=== PATIENT | male | born 1950 | race African-American/Black ===

== ENCOUNTER 2017-06-26 15:49 | Inpatient (IN) | payer OTHER ==
[2017-06-26 16:01] VITALS: BMI 23.3
--- NOTE | 2017-06-26 16:43 | HP ---
CIWA Score - CIWA Score Nausea/Vomitin Muscle Tremors: 3 Anxiety: 3 Agitation: 3 Paroxysmal Sweats: 2 Orientation: 0-Oriented Tacttile Disturbances: 2-Mild Itch/Numbness/Burn Auditory Disturbances: 2-Mild Harshness/Frighten Visual Disturbances: 1-Very Mild Sensitivity Headache: 2-Mild CIWA-Ar Total Score: 21 Admission ROS BHS - HPI Chief Complaint: i need help to stop using alcohol,cocaine,heroin abused Allergies/Adverse Reactions: Allergies Allergy/AdvReac Type Severity Reaction Status Date / Time No Known Allergies Allergy Verified 06/26/17 18:44 History of Present Illness: this 67 years old male with alcohol and cocaine dependence,heroin abused, seeking detox,last treatment 2017 unknown facility syncope alcohol related depression hypertension no significant period of sobriety - Ebola screening Have you traveled outside of the country in the last 21 days: No Have you had contact with anyone from an Ebola affected area: No Have you been sick,other than usual withdrawal symptoms: No Do you have a fever: No - Review of Systems Constitutional: Loss of Appetite, Malaise, Night Sweats, Changes in sleep, Weakness, Unintentional Wgt. Loss EENT: reports: Tearing, Nose Congestion Respiratory: reports: No Symptoms reported Cardiac: reports: No Symptoms Reported GI: reports: Nausea, Vomiting, Abdominal cramping : reports: No Symptoms Reported Musculoskeletal: reports: Back Pain, Muscle Pain Integumentary: reports: Dryness Neuro: reports: Headache, Tremors Endocrine: reports: No Symptoms Reported Hematology: reports: No Symptoms Reported Psychiatric: reports: Depressed Patient History - Patient Medical History Hx Anemia: No Hx Asthma: No Hx Chronic Obstructive Pulmonary Disease (COPD): No Hx Cancer: No Hx Cardiac Disorders: No Hx Congestive Heart Failure: No Hx Hypertension: Yes (Pt is non compliant with meds.) Hx Hypercholesterolemia: No Hx Pacemaker: No HX Cerebrovascular Accident: 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) Hx Seizures: No Hx Dementia: No Hx Diabetes: No Hx Gastrointestinal Disorders: No Hx Liver Disease: No Hx Genitourinary Disorders: No Hx Sexually Transmitted Disorders: Yes (Hx of gonnorhea) Hx Renal Disease (ESRD): No Hx Thyroid Disease: No Hx Human Immunodeficiency Virus (HIV): No (last 2015 negative) Hx Hepatitis C: No Hx Depression: No Hx Suicide Attempt: No Hx Bipolar Disorder: Yes Hx Schizophrenia: Yes (elif) Other Medical History: no suicidal,no homicidal - Patient Surgical History Past Surgical History: No - PPD History Previous Implant?: Yes Documented Results: Negative w/o proof Implanted On Prior R Admission?: Yes Date: 01/20/14 Results: 0 MM PPD to be Administered?: Yes - Smoking Cessation Smoking history: Current every day smoker Have you smoked in the past 12 months: Yes Aproximately how many cigarettes per day: 2 Hx Chewing Tobacco Use: No Initiated information on smoking cessation: Yes 'Breaking Loose' booklet given: 06/26/17 - Substance & Tx. History Hx Alcohol Use: Yes Hx Substance Use: Yes Substance Use Type: Alcohol, Cocaine, Heroin - Substances Abused Alcohol Route: Oral Frequency: Daily Amount used: 1/2 pint of whiskey/6 packs of 12 ozs of beer Age of first use: 14 Date of Last Use: 06/26/17 Cocaine Route: Smoking Frequency: Daily Amount used: 20$ Age of first use: 17 Date of Last Use: 06/26/17 Heroin Route: Inhalation Frequency: 1-2 times per week Amount used: 1 bag Age of first use: 14 Date of Last Use: 06/22/17 Family Disease History - Family Disease History Family Disease History: Diabetes: Mother (heroin ,), Heart Disease: Mother, CA: Grandparent, Other: Mother Admission Physical Exam BHS - Vital Signs Vital Signs: Vital Signs - 24 hr 06/26/17 15:58 Temperature 98 F Pulse Rate 64 Respiratory 18 Rate Blood Pressure 168/109 - Physical General Appearance: Yes: Moderate Distress, Tremorous, Irritable, Sweating, Anxious HEENTM: Yes: Normal ENT Inspection, SEA, Pharynx Normal Respiratory: Yes: Lungs Clear, Normal Breath Sounds, No Respiratory Distress Neck: Yes: Within Normal Limits, Supple, Trachea in good position Breast: Yes: Within Normal Limits Cardiology: Yes: Within Normal Limits, Regular Rhythm, Regular Rate, S1, S2 Abdominal: Yes: Within Normal Limits, Normal Bowel Sounds, Non Tender, Flat, Soft Genitourinary: Yes: Within Normal Limits Back: Yes: Within Normal Limits, Normal Inspection, Muscle Spasm Musculoskeletal: Yes: Within Normal Limits, full range of Motion, Back pain Extremities: Yes: Tremors Neurological: Yes: cook starch II-XII NML intact, Fully Oriented, Alert, Motor Strength 5/5 Integumentary: Yes: Dry Lymphatic: Yes: Within Normal Limits - Diagnostic (1) Alcohol dependence with uncomplicated withdrawal Current Visit: Yes Status: Acute (2) Cocaine dependence Current Visit: Yes Status: Acute (3) Hypertension Current Visit: No Status: Acute (4) Opioid dependence Current Visit: No Status: Acute (5) Schizoaffective disorder Current Visit: No Status: Chronic (6) Nicotine dependence Current Visit: Yes Status: Acute (7) Uncomplicated sedative, hypnotic, or anxiolytic withdrawal Current Visit: Yes Status: Acute Cleared for Admission [facility] - Detox or Rehab [facility] Level of Care: Medically Managed Detox Regimen/Protocol: Librium (urine for drug screen shwed negative for opiate ) [facility] Breath Alcohol Content Breath Alcohol Content: 0.044 Urine Drug Screen - Results Drug Screen Negative: No Urine Drug Screen Results: MINERVA-Cocaine
[2017-06-26] MEDS ORDERED: ACETAMINOPHEN 325 MG TABLET (FP) PO PRN (16:55)
[2017-06-26] MEDS ORDERED: hydrOXYzine PAMOATE 25 MG CAPSULE (FP) PO PRN (16:55)
[2017-06-26] MEDS ORDERED: P-EPHED 60MG/TRIPROLIDI 2.5MG TABLET PO PRN (16:55)
[2017-06-26] MEDS ORDERED: IBUPROFEN 400 MG TABLET (FP) PO PRN (16:55)
[2017-06-26] MEDS ORDERED: guaiFENesin/D-METHORPHAN HB 10 ML UNIT-DOSE CUPS PO PRN (16:55)
[2017-06-26] MEDS ORDERED: chlordiazePOXIDE HCL 25 MG CAPSULE PO PRN (16:55)
[2017-06-26] MEDS ORDERED: MAG HYDROX/AL HYDROX/SIMETH 30 ML UNIT-DOSE CUP PO PRN (16:55)
[2017-06-26] MEDS ORDERED: MAGNESIUM HYDROX 2400MG/30ML ORAL SUSPENSION 30 ML CUP PO PRN (16:55)
[2017-06-26] MEDS ORDERED: MAGNESIUM CITRATE 300 ML BOTTLE PO PRN (16:55)
[2017-06-26] MEDS ORDERED: chlordiazePOXIDE HCL 25 MG CAPSULE PO ONE (16:55)
[2017-06-26] MEDS ORDERED: MENTHOL/PHENOL 1 EACH UD MM PRN (16:55)
[2017-06-26] MEDS ORDERED: LOPERAMIDE HCL 2 MG CAPSULE PO PRN (16:55)
[2017-06-26] MEDS: THIAMINE HCL 100 MG TABLET (FP) PO SCH (21:28)
[2017-06-26] MEDS: cloNIDine HCL 0.1 MG TABLET PO SCH (21:28)
[2017-06-26] MEDS: chlordiazePOXIDE HCL 25 MG CAPSULE PO SCH (22:42)
[2017-06-27] MEDS: chlordiazePOXIDE HCL 25 MG CAPSULE PO SCH ×4 (06:03→22:35)
[2017-06-27] MEDS: HYDROCHLOROTHIAZIDE 25 MG TABLET (FP) PO SCH (10:32)
[2017-06-27] MEDS: PRENATAL VITAMINS W/ FOLIC ACID TABLET (FP) PO SCH (10:32)
[2017-06-27] MEDS: cloNIDine HCL 0.1 MG TABLET PO SCH ×2 (10:32→22:34)
--- NOTE | 2017-06-27 11:14 | CONSULT ---
[facility] Psychiatric Consult - Data Date of interview: 06/27/17 Admission source: [facility] Identifying data: Readmission to [facility] for this 67 y/o AA male seeking detox treatment on for heroin and cocaine (crack) dependence.Patient is ,a father of six,domiciled,unemployed and supported on [facility] benefits. Substance Abuse History: Confirmed by patient in this session.Refer to current [facility] report for details : Smoking history: Current every day smoker. Have you smoked in the past 12 months: Yes. Aproximately how many cigarettes per day: 2. Hx Chewing Tobacco Use: No. Initiated information on smoking cessation: Yes. 'Breaking Loose' booklet given: 06/26/17. - Substance & Tx. History. Hx Alcohol Use: Yes. Hx Substance Use: Yes. Substance Use Type: Alcohol, Cocaine , Heroin. - Substances Abused. Alcohol. Route: Oral. Frequency: Daily. Amount used: 1/2 pint of whiskey/6 packs of 12 ozs of beer. Age of first use: 14. Date of Last Use: 06/26/17. Cocaine. Route: Smoking. Frequency: Daily. Amount used: 20$. Age of first use: 17. Date of Last Use: 06/26/17. * * Heroin. Route: Inhalation. Frequency: 1-2 times per week. Amount used: 1 bag. Age of first use: 14. Date of Last Use: 06/22/17 Medical History: Hepatitis C,hypertension,lower back pain (used to walk with cane),Kramer's palsy (2012) and a history of treatment for gonorrhea. Psychiatric History: Patient denies history of psychiatric illness or hospitalizations (contrary to [facility] report of schizophrenia).No reported contact with psychiatric OPD care providers.Exposure to psychotropic medications : none.Mr Hadley denies history of suicide attempts. Physical/Sexual Abuse/Trauma History: Patient denies history of abuse. Additional Comment: Urine Drug Screen Results: MINERVA-Cocaine.Noted. Mental Status Exam - Mental Status Exam Alert and Oriented to: Time, Place, Person Cognitive Function: Grossly Intact Patient Appearance: Well Groomed Mood: Withdrawn, Hopeful Affect: Mood Congruent Patient Behavior: Fatigued, Appropriate, Cooperative Speech Pattern: Clear, Appropriate Voice Loudness: Normal Thought Process: Goal Oriented Thought Disorder: Not Present Hallucinations: Denies Suicidal Ideation: Denies Homicidal Ideation: Denies Insight/Judgement: Poor Sleep: Poorly, Difficulty falling asleep Appetite: Fair Gait/Station: Other (slow but steady) Psychiatric Findings - Problem List ([place] 1, 2,3) (1) Alcohol dependence with uncomplicated withdrawal Current Visit: Yes Status: Acute (2) Cocaine dependence Current Visit: Yes Status: Chronic (3) Nicotine dependence Current Visit: Yes Status: Chronic (4) Insomnia Current Visit: Yes Status: Acute - Initial Treatment Plan Initial Treatment Plan: Psychoeducation.Sleep hygiene.Detoxification in progress.Patient agrees to take hydroxyzine 25 mg po hs prn to address mild insomnia.Side effects/benefits discussed.Mr Hadley agrees to follow this careplan.Observation.Fall precautions.
--- NOTE | 2017-06-27 12:27 | PN ---
[facility] CIWA - CIWA Score Nausea/Vomitin-No Nausea/No Vomiting Muscle Tremors: 5 Anxiety: 4-Mod. Anxious/Guarded Agitation: 4-Moderately Restless Paroxysmal Sweats: 1-Minimal Palms Moist Orientation: 0-Oriented Tacttile Disturbances: 1-Very Mild Itch/Numbness Auditory Disturbances: 0-None Visual Disturbances: 0-None Headache: 1-Very Mild CIWA-Ar Total Score: 16 BHS Progress Note (SOAP) Subjective: Anxious, restless, tremor Objective: 06/27/17 12:25 Last Vital Signs Temp Pulse Resp BP Pulse Ox 96.1 F L 69 18 150/96 06/27/17 11:10 06/27/17 11:10 06/27/17 11:10 06/27/17 11:10 Admission labs ordered: follow up on result Assessment: 06/27/17 12:26 Withdrawal symptoms Plan: Continue detox Encouraged to drink more water for hydration
--- NOTE | 2017-06-27 12:45 | EKG ---
Test Reason : Blood Pressure : / mmHG Vent. Rate : 073 BPM Atrial Rate : 073 BPM P-R Int : 166 ms QRS Dur : 108 ms QT Int : 398 ms P-R-T Axes : 069 -29 046 degrees QTc Int : 438 ms NORMAL SINUS RHYTHM MINIMAL VOLTAGE CRITERIA FOR LVH, MAY BE NORMAL VARIANT CANNOT RULE OUT ANTERIOR INFARCT , AGE UNDETERMINED ABNORMAL ECG NO PREVIOUS ECGS AVAILABLE Confirmed by KALYN CARTER MD ([id number]) on 06/27/2017 12:45:21 PM Referred By: Confirmed By:KALYN CARTER MD
[2017-06-27] MEDS: THIAMINE HCL 100 MG TABLET (FP) PO SCH (22:34)
[2017-06-28] MEDS: chlordiazePOXIDE HCL 25 MG CAPSULE PO SCH ×3 (05:41→17:39)
[2017-06-28] MEDS: cloNIDine HCL 0.1 MG TABLET PO SCH ×2 (11:12→22:22)
[2017-06-28] MEDS: HYDROCHLOROTHIAZIDE 25 MG TABLET (FP) PO SCH (11:12)
[2017-06-28] MEDS: PRENATAL VITAMINS W/ FOLIC ACID TABLET (FP) PO SCH (11:12)
--- NOTE | 2017-06-28 13:22 | PN ---
S CIWA - CIWA Score Nausea/Vomitin-Mild Nausea/No Vomiting Muscle Tremors: 3 Anxiety: 4-Mod. Anxious/Guarded Agitation: 4-Moderately Restless Paroxysmal Sweats: 2 Orientation: 0-Oriented Tacttile Disturbances: 1-Very Mild Itch/Numbness Auditory Disturbances: 0-None Visual Disturbances: 0-None Headache: 0-None Present CIWA-Ar Total Score: 15 BHS Progress Note (SOAP) Subjective: Sweating, anxious, nausea, interrupted sleep Objective: 06/28/17 13:06 Last Vital Signs Temp Pulse Resp BP Pulse Ox 97.6 F 66 18 140/92 06/28/17 10:05 06/28/17 10:05 06/28/17 10:05 06/28/17 10:05 No admission labs in chart Assessment: 06/28/17 13:23 Withdrawal symptoms Plan: Continue detox Encouraged to drink lots of water for hydration Admission labs reordered as none in chart
[2017-06-28] MEDS: chlordiazePOXIDE 5 MG CAPSULE PO SCH (22:22)
[2017-06-28] MEDS: THIAMINE HCL 100 MG TABLET (FP) PO SCH (22:22)
[2017-06-29] MEDS: chlordiazePOXIDE 5 MG CAPSULE PO SCH ×3 (06:19→18:09)
[2017-06-29] MEDS: cloNIDine HCL 0.1 MG TABLET PO SCH ×2 (10:13→21:57)
[2017-06-29] MEDS: PRENATAL VITAMINS W/ FOLIC ACID TABLET (FP) PO SCH (10:13)
[2017-06-29] MEDS: HYDROCHLOROTHIAZIDE 25 MG TABLET (FP) PO SCH (10:13)
[2017-06-29 10:17] LABS: BASO % 1.1 % (0-2.0); EOS % 4.8 % (0-4.5); HEMOGLOBIN 13.1 GM/dL (11.7-16.9); LYMPH % 28.6 % (8-40); MCH 25.4 pg (25.7-33.7); MCHC 31.1 g/dl (32.0-35.9); MEAN CELL VOLUME 81.8 fl (80-96); MEAN PLT VOLUME 11.4 fl (7.5-11.1); MONO % 18.3 % (3.8-10.2); NEUT % 47.2 % (42.8-82.8); PLATELET COUNT 128 K/MM3 (134-434); RBC 5.13 M/mm3 (4.00-5.60); RDW 14.4 % (11.9-15.9); WHITE BLOOD COUNT 10.8 K/mm3 (4.0-10.0)
[2017-06-29 10:25] LABS: ALBUMIN 3.5 g/dl (3.4-5.0); ALK PHOS 64 U/L (45-117); ANION GAP 10 (8-16); BILIRUBIN,TOTAL 0.4 mg/dL (0.2-1.0); BLOOD UREA NITROGEN 29 mg/dL (7-18); CALCIUM 8.9 mg/dL (8.5-10.1); CHLORIDE 103 mmol/L (98-107); CO2 26 mmol/L (21-32); CREATININE 1.7 mg/dL (0.7-1.3); GLUCOSE,RANDOM 89 mg/dL (74-106); POTASSIUM 4.3 mmol/L (3.5-5.1); SGOT/AST 28 U/L (15-37); SGPT/ALT 30 U/L (12-78); SODIUM 139 mmol/L (136-145); TOT PROT 7.5 g/dl (6.4-8.2)
--- NOTE | 2017-06-29 15:07 | PN ---
BHS Progress Note (SOAP) Subjective: ANXIETY,CHILLS,DRY MOUTH,INTERMITTENT SLEEP. Objective: 06/29/17 15:07 Vital Signs Temperature 96.9 F L 06/29/17 13:15 Pulse Rate 108 H 06/29/17 13:15 Respiratory Rate 18 06/29/17 13:15 Blood Pressure 114/72 06/29/17 13:15 O2 Sat by Pulse Oximetry (%) Laboratory Last Values WBC 10.8 K/mm3 (4.0-10.0) H D 06/29/17 07:00 RBC 5.13 M/mm3 (4.00-5.60) 06/29/17 07:00 Hgb 13.1 GM/dL (11.7-16.9) 06/29/17 07:00 Hct 42.0 % (35.4-49) 06/29/17 07:00 MCV 81.8 fl (80-96) 06/29/17 07:00 MCH 25.4 pg (25.7-33.7) L 06/29/17 07:00 MCHC 31.1 g/dl (32.0-35.9) L 06/29/17 07:00 RDW 14.4 % (11.9-15.9) 06/29/17 07:00 Plt Count 128 K/MM3 (134-434) L 06/29/17 07:00 MPV 11.4 fl (7.5-11.1) H 06/29/17 07:00 Neutrophils % 47.2 % (42.8-82.8) 06/29/17 07:00 Lymphocytes % 28.6 % (8-40) 06/29/17 07:00 Monocytes % 18.3 % (3.8-10.2) H 06/29/17 07:00 Eosinophils % 4.8 % (0-4.5) H 06/29/17 07:00 Basophils % 1.1 % (0-2.0) 06/29/17 07:00 Sodium 139 mmol/L (136-145) 06/29/17 07:00 Potassium 4.3 mmol/L (3.5-5.1) 06/29/17 07:00 Chloride 103 mmol/L (98-107) 06/29/17 07:00 Carbon Dioxide 26 mmol/L (21-32) 06/29/17 07:00 Anion Gap 10 (8-16) 06/29/17 07:00 BUN 29 mg/dL (7-18) H 06/29/17 07:00 Creatinine 1.7 mg/dL (0.7-1.3) H 06/29/17 07:00 Creat Clearance w eGFR 40.65 (>60) 06/29/17 07:00 Random Glucose 89 mg/dL (74-106) 06/29/17 07:00 Calcium 8.9 mg/dL (8.5-10.1) 06/29/17 07:00 Total Bilirubin 0.4 mg/dL (0.2-1.0) D 06/29/17 07:00 AST 28 U/L (15-37) 06/29/17 07:00 ALT 30 U/L (12-78) D 06/29/17 07:00 Alkaline Phosphatase 64 U/L (45-117) D 06/29/17 07:00 Total Protein 7.5 g/dl (6.4-8.2) 06/29/17 07:00 Albumin 3.5 g/dl (3.4-5.0) 06/29/17 07:00 HIV 1&2 Antibody Screen Negative 06/29/17 07:00 HIV P24 Antigen Negative 06/29/17 07:00 Assessment: 06/29/17 15:07 WITHDRAWAL SX Plan: CONTINUE DETOX INCREASE PO FLUIDS
--- NOTE | 2017-06-29 20:18 | PN ---
BHS Progress Note Note: received nurse call that the patient refuses librium 15 mg one dose today
[2017-06-29] MEDS: THIAMINE HCL 100 MG TABLET (FP) PO SCH (21:56)
[2017-06-29] MEDS: chlordiazePOXIDE HCL 10 MG CAPSULE PO SCH (23:21)
[2017-06-30] MEDS: chlordiazePOXIDE HCL 10 MG CAPSULE PO SCH ×2 (06:05→10:48)
[2017-06-30 09:40] VITALS: BP 119/84; PULSE 76; TEMP 97.8
[2017-06-30] MEDS: PRENATAL VITAMINS W/ FOLIC ACID TABLET (FP) PO SCH (10:47)
[2017-06-30] MEDS: HYDROCHLOROTHIAZIDE 25 MG TABLET (FP) PO SCH (10:48)
[2017-06-30] MEDS: cloNIDine HCL 0.1 MG TABLET PO SCH (10:48)
--- NOTE | 2017-06-30 13:20 | DS ---
[facility] Detox Discharge Summary Admission Date: 06/26/17 Discharge Date: 06/30/17 - History Present History: Alcohol Dependence, Cocaine Dependence, Sedative Dependence - Physical Exam Results Vital Signs: Vital Signs Temperature 97.8 F 06/30/17 09:39 Pulse Rate 76 06/30/17 09:39 Respiratory Rate 20 06/30/17 09:39 Blood Pressure 119/84 06/30/17 09:39 O2 Sat by Pulse Oximetry (%) - Treatment Hospital Course: Detox Protocol Followed, Detoxed Safely, Responded well, Discharged Condition Good, Rehab Referral Accepted Patient has Accepted a Rehab Referral to: [facility] - Medication Discharge Medications: Ambulatory Orders Clonidine HCl [Catapres -] 0.2 mg PO BID #60 tablet 01/25/14 Hydrochlorothiazide [Hctz -] 25 mg PO DAILY #30 tablet 01/25/14 Aripiprazole [Abilify -] 15 mg PO HS #30 tablet 10/02/14 Trazodone HCl [Desyrel -] 50 mg PO HS #30 tablet 10/02/14 - Diagnosis (1) Alcohol dependence with uncomplicated withdrawal Status: Acute (2) Cocaine abuse Status: Acute (3) Insomnia Status: Acute (4) Uncomplicated sedative, hypnotic, or anxiolytic withdrawal Status: Acute (5) Hypertension Status: Chronic Qualifiers: Hypertension type: essential hypertension Qualified Code(s): I10 - Essential (primary) hypertension (6) Nicotine dependence Status: Chronic Qualifiers: Nicotine product type: cigarettes Substance use status: in withdrawal Qualified Code(s): F17.213 - Nicotine dependence, cigarettes, with withdrawal (7) Opioid dependence Status: Chronic (8) Use of cane as ambulatory aid Status: Chronic - AMA Did Patient Leave Against Medical Advice: No
== END 2017-06-30 11:06 | disposition home or self-care (01) | DRG 897 ==
LOC: YASAS 15:49 → Y3N 16:54
PROVIDERS: ADMIT Internal Medicine; ATTEND Internal Medicine
PROC: HZ2ZZZZ Detoxification Services for Substance Abuse Treatment (ICD-10-PCS; principal; 2017-06-26)
DX: F11.20 Opioid dependence, uncomplicated (principal); F13.230 Sedative, hypnotic or anxiolytic dependence with withdrawal, uncomplicated; F10.230 Alcohol dependence with withdrawal, uncomplicated; F14.20 Cocaine dependence, uncomplicated; F17.213 Nicotine dependence, cigarettes, with withdrawal; F25.9 Schizoaffective disorder, unspecified; I10 Essential (primary) hypertension; R26.2 Difficulty in walking, not elsewhere classified; Z99.89 Dependence on other enabling machines and devices; Z86.19 Personal history of other infectious and parasitic diseases
CPT/HCPCS: 36415; 80053; 85025; 86593; 87389; 93005; 93010